=== PATIENT | female | born 1980 | race Caucasian/White ===

== ENCOUNTER 2018-03-16 18:02 | Emergency (ER) | payer SELFPAY ==
[2018-03-16 18:14] VITALS: BP 148/88
--- NOTE | 2018-03-16 18:30 | UC ---
Skin Complaint HPI - HPI Summary HPI Summary: Noticed swollen, itchy area on R upper leg yesterday. Has gotten bigger and more swollen today. Did not see any insect stings/bites, concerned about spider. Will be traveling to [place] in 2 days. - History of Current Complaint Chief Complaint: UCSkin Time Seen by Provider: 03/16/18 18:13 Stated Complaint: SPIDER BITE Hx Obtained From: Patient Hx Last Menstrual Period: one week ago ?: No Onset/Duration: Gradual Onset, Lasting Days Timing: Constant Onset Severity: Mild Current Severity: Mild Pain Intensity: 4 Location: Discrete Character: Pruritus, Redness, Raised, Painful Aggravating Factor(s): Touch Alleviating Factor(s): Nothing Associated Signs & Symptoms: Positive: Rash, Tenderness - Allergy/Home Medications Allergies/Adverse Reactions: Allergies Allergy/AdvReac Type Severity Reaction Status Date / Time No Known Allergies Allergy Verified 03/16/18 18:14 Review of Systems Constitutional: Negative Skin: Rash Eyes: Negative ENT: Negative Respiratory: Negative Cardiovascular: Negative Gastrointestinal: Negative Genitourinary: Negative Motor: Negative Neurovascular: Negative Musculoskeletal: Negative Neurological: Negative Psychological: Negative Is Patient Immunocompromised?: No All Other Systems Reviewed And Are Negative: Yes PMH/Surg Hx/FS Hx/Imm Hx Previously Healthy: Yes - Surgical History Surgical History: None - Family History Known Family History: Negative: Blood Disorder - Social History Occupation: Employed Full-time Lives: With Family Alcohol Use: None Substance Use Type: None Smoking Status (MU): Never Smoked Tobacco Physical Exam Triage Information Reviewed: Yes Appearance: Well-Appearing, No Pain Distress, Well-Nourished Vital Signs: Initial Vital Signs Temp 97.0 F 03/16/18 18:12 Pulse 63 03/16/18 18:12 Resp 12 03/16/18 18:12 BP 148/88 03/16/18 18:12 Pulse Ox 100 03/16/18 18:12 Vital Signs Reviewed: Yes Eye Exam: Normal Eyes: Positive: Conjunctiva Clear ENT Exam: Normal ENT: Positive: Normal ENT inspection, Hearing grossly normal, Pharynx normal, TMs normal Dental Exam: Normal Neck exam: Normal Neck: Positive: Supple, Nontender, No Lymphadenopathy Respiratory Exam: Normal Respiratory: Positive: Chest non-tender, Lungs clear, Normal breath sounds, No respiratory distress, No accessory muscle use Cardiovascular Exam: Normal Cardiovascular: Positive: RRR, No Murmur Musculoskeletal Exam: Normal Neurological Exam: Normal Neurological: Positive: Alert Psychological Exam: Normal Skin Exam: Other - Round, very raised and well-demarcated plaque on R upper outer thigh with slightly vesicular center, pale halo around it, wheal appearance. Course/Dx - Differential Diagnoses - Skin Complaint Differential Diagnoses: Cellulitis, Local Allergic Reaction, Tick Born Illness - Diagnoses Provider Diagnoses: Insect sting, large local reaction Discharge - Sign-Out/Discharge Documenting (check all that apply): Discharge/Admit/Transfer - Discharge Plan Condition: Stable Disposition: HOME Prescriptions: predniSONE TAB* [Deltasone TAB*] 50 mg PO DAILY #2 tab Patient Education Materials: Insect Bite or Sting (ED) Referrals: No Primary Care Phys,NOPCP [Primary Care Provider] - Additional Instructions: You have a large local reaction -- it does NOT look like infection, and you don' t need antibiotics. The prednisone will help bring itching and swelling down quickly. But the spot should get better on its own in time, regardless of whether you choose to take the prednisone or not. - Billing Disposition and Condition Condition: STABLE Disposition: Home
== END 2018-03-16 18:41 | disposition home or self-care (01) ==
LOC: UCEAST 18:02
DX: S40.262A Insect bite (nonvenomous) of left shoulder, initial encounter (principal); S40.261A Insect bite (nonvenomous) of right shoulder, initial encounter; W57.XXXA Bitten or stung by nonvenomous insect and other nonvenomous arthropods, initial encounter; Y93.9 Activity, unspecified; Y99.9 Unspecified external cause status
CPT/HCPCS: 99202; G0463